=== PATIENT | female | born 1995 | race Caucasian/White ===

== ENCOUNTER 2021-07-04 19:22 | Emergency (ER) | payer OTHER ==
[~2021-07-04] VITALS: Ht 162.6 cm; Wt 117.9 kg
[~2021-07-04 19:22] MED LIST: ADVAIR HFA 230M12 GM INH; AVIANE1 EACH PO; FLONASE 0.05%50 MCG NASAL
[2021-07-04] MEDS ORDERED: WELLBUTRIN SR150 MG PO (19:43)
[2021-07-04 20:10] VITALS: BP 141/70
== END 2021-07-04 20:11 | disposition home or self-care (01) ==
LOC: M.ERS 19:22
DX: S61.211A Laceration without foreign body of left index finger without damage to nail, initial encounter (principal); W26.8XXA Contact with other sharp object(s), not elsewhere classified, initial encounter; Y93.89 Activity, other specified; Y92.89 Other specified places as the place of occurrence of the external cause; Y99.8 Other external cause status